=== PATIENT | male | born 1945 | race Hispanic/Latino ===

== ENCOUNTER 2019-11-04 11:42 | Inpatient (IN) | payer MEDICARE, OTHER ==
[~2019-11-04] VITALS: Ht 162.6 cm; Wt 81.0 kg
[2019-11-04 11:55] VITALS: PULSE 96; RESP 26
[2019-11-04] MEDS ORDERED: ALBUTEROL INHALER 90MCG/INH IH ONE (12:05)
[2019-11-04] MEDS ORDERED: AZITHROMYCIN 500MG+NS 250ML 250 ML IV ONE ×2 (12:32→14:07)
[2019-11-04] MEDS ORDERED: CEFTRIAXONE SODIUM 1 GM ONE ×2 (12:32→14:08)
[2019-11-04] MEDS ORDERED: FUROSEMIDE 10 MG/ML 4ML VIAL ONE (14:07)
[2019-11-04] MEDS ORDERED: ASPIRIN 325 MG TABLET ONE (14:07)
[2019-11-04] MEDS ORDERED: GUAIFENESIN-CODEINE 5 ML SYRUP PO PRN (15:30)
[2019-11-04] MEDS ORDERED: ACETAMINOPHEN 325 MG TAB PO PRN ×2 (15:30)
[2019-11-04] MEDS ORDERED: LACTULOSE 20 GM/30 ML UDCUP PO PRN (15:30)
[2019-11-04] MEDS: NITROGLYCERIN 1GM/1 INCH PACKET TD SCH ×2 (15:30→23:30)
[2019-11-04] MEDS ORDERED: HYDRALAZINE HCL 20 MG/ML VIAL IV PRN (15:30)
[2019-11-04] MEDS ORDERED: ONDANSETRON HCL 4 MG/2 ML VIAL IV PRN (15:30)
[2019-11-04] MEDS ORDERED: NITROGLYCERIN 1GM/1 INCH PACKET TD ONE (17:31)
[2019-11-04 20:00] VITALS: PULSE 117; RESP 26
[2019-11-04] MEDS: FUROSEMIDE 10 MG/ML 4ML VIAL IVP SCH (21:00)
[2019-11-04] MEDS: CEFTRIAXONE SODIUM 1 GM IV SCH (21:00)
[2019-11-04] MEDS: METOPROLOL TARTRATE 25 MG TAB PO SCH (21:00)
[2019-11-04] MEDS ORDERED: METOPROLOL TARTRATE 25 MG TAB ONE (21:34)
[2019-11-04] MEDS ORDERED: ENOXAPARIN SODIUM 40 MG/0.4 ML SYRINGE SQ ONE (21:50)
[2019-11-04 22:45] VITALS: PULSE 84; RESP 26
[2019-11-04 23:00] VITALS: BP 123/90; PULSE 110; RESP 23; TEMP 98.5
[2019-11-05] VITALS (11 sets, daily range): BP systolic 97–146; BP diastolic 47–76; PULSE 89–131; RESP 20–28; TEMP 98.5–99.8
[2019-11-05] MEDS: METOPROLOL TARTRATE 25 MG TAB PO SCH ×2 (08:25→21:28)
[2019-11-05] MEDS: NITROGLYCERIN 1GM/1 INCH PACKET TD SCH ×3 (08:26→23:10)
[2019-11-05] MEDS: CEFTRIAXONE SODIUM 1 GM IV SCH (08:26)
[2019-11-05] MEDS: FUROSEMIDE 10 MG/ML 4ML VIAL IVP SCH ×2 (08:26→21:29)
[2019-11-05] MEDS ORDERED: ASPIRIN 81MG TAB.CHEW PO SCH (09:00)
[2019-11-05] MEDS ORDERED: ENOXAPARIN SODIUM 40 MG/0.4 ML SYRINGE SQ SCH (09:00)
[2019-11-05] MEDS ORDERED: METOPROLOL TARTRATE 1 MG/ML 5ML VIAL IV PRN (11:00)
[2019-11-05] MEDS ORDERED: AZITHROMYCIN 500MG+NS 250ML 250 ML IV SCH (12:00)
--- NOTE | 2019-11-05 12:56 | NUR ---
DC PLAN PATIENT IN COVID UNIT UNDER PUI. CM WILL WAIT FOR RESULTS PRIOR TO CALLING PATIENT AND FAMILY IN ORDER TO HAVE A BETTER DC PLAN. Addendum: 11/05/19 at 1257 by MEILY HSU RN CM Amended: Links added.
[2019-11-05] MEDS ORDERED: CLOPIDOGREL BISULFATE 300 MG TAB PO SCH ×2 (13:45→20:30)
[2019-11-05] MEDS ORDERED: DEXTROSE 50%-WATER 50 ML DISP.SYRIN IV PRN (17:30)
[2019-11-05] MEDS ORDERED: GLUCAGON 1MG KIT 1 MG ML IM PRN (17:30)
[2019-11-05] MEDS ORDERED: PHARMACY COMMUNICATION MISC SCH (17:30)
[2019-11-05] MEDS ORDERED: MAGNESIUM 2GM PREMIX 50ML 50 ML IV PRN (17:30)
[2019-11-05] MEDS: INSULIN HUMULIN R 100 UNIT/ML 3ML SQ SCH (21:00)
[2019-11-05] MEDS: CLONAZEPAM 1 MG TABLET PO SCH (21:28)
[2019-11-05] MEDS: ENOXAPARIN SODIUM 80 MG/0.8 ML SQ SCH (21:29)
[2019-11-05] MEDS: METHYLPREDNISOLONE SOD SUCC 40MG/ML 1ML IVP SCH (21:29)
[2019-11-06] VITALS (10 sets, daily range): BP systolic 111–141; BP diastolic 65–94; PULSE 102–128; RESP 20–26; TEMP 96.8–100
[2019-11-06] MEDS: INSULIN HUMULIN R 100 UNIT/ML 3ML SQ SCH ×4 (05:56→20:54)
[2019-11-06] MEDS ORDERED: CLOPIDOGREL BISULFATE 75 MG TAB PO SCH (09:00)
[2019-11-06] MEDS: FUROSEMIDE 10 MG/ML 4ML VIAL IVP SCH ×2 (09:27→20:55)
[2019-11-06] MEDS: METHYLPREDNISOLONE SOD SUCC 40MG/ML 1ML IVP SCH ×2 (09:27→20:55)
[2019-11-06] MEDS: PANTOPRAZOLE SODIUM 40 MG TABLET.DR PO SCH (09:27)
[2019-11-06] MEDS: CLONAZEPAM 1 MG TABLET PO SCH ×2 (09:27→20:55)
[2019-11-06] MEDS: ASPIRIN 81MG TAB.CHEW PO SCH (09:27)
[2019-11-06] MEDS: CLOPIDOGREL BISULFATE 75 MG TAB PO SCH (09:27)
[2019-11-06] MEDS: METOPROLOL TARTRATE 25 MG TAB PO SCH ×2 (09:28→20:55)
[2019-11-06] MEDS: ATORVASTATIN CALCIUM 40 MG TABLET PO SCH (09:28)
[2019-11-06] MEDS: ENOXAPARIN SODIUM 80 MG/0.8 ML SQ SCH ×2 (09:30→20:56)
[2019-11-06] MEDS: NITROGLYCERIN 1GM/1 INCH PACKET TD SCH ×2 (09:36→16:26)
--- NOTE | 2019-11-06 14:18 | NUR ---
CORIE stephens call made to pt's room for assessment, pt requesting to call back at a later time.
--- NOTE | 2019-11-06 20:00 | NUR ---
VQ scan pending As per radiologist tech unable to take patient to CT at this time due to patient on high flow nasal canula. Will re-attempt in the morning.
[2019-11-06] MEDS: INSULIN GLARGINE 100 UNITS/ML 10 ML VIAL SQ SCH (20:53)
[2019-11-07] VITALS (10 sets, daily range): BP systolic 104–116; BP diastolic 60–72; PULSE 60–110; RESP 18–28; TEMP 97.6–98.2
[2019-11-07] MEDS: NITROGLYCERIN 1GM/1 INCH PACKET TD SCH ×4 (00:16→22:52)
[2019-11-07] MEDS: INSULIN HUMULIN R 100 UNIT/ML 3ML SQ SCH ×4 (06:19→21:35)
[2019-11-07] MEDS: FUROSEMIDE 10 MG/ML 4ML VIAL IVP SCH (08:57)
[2019-11-07] MEDS: METHYLPREDNISOLONE SOD SUCC 40MG/ML 1ML IVP SCH (08:57)
[2019-11-07] MEDS: ASPIRIN 81MG TAB.CHEW PO SCH (08:58)
[2019-11-07] MEDS: CLOPIDOGREL BISULFATE 75 MG TAB PO SCH (08:58)
[2019-11-07] MEDS: ATORVASTATIN CALCIUM 40 MG TABLET PO SCH (08:58)
[2019-11-07] MEDS: CLONAZEPAM 1 MG TABLET PO SCH ×2 (08:58→20:27)
[2019-11-07] MEDS: PANTOPRAZOLE SODIUM 40 MG TABLET.DR PO SCH (08:59)
[2019-11-07] MEDS: METOPROLOL TARTRATE 25 MG TAB PO SCH ×2 (08:59→20:28)
[2019-11-07] MEDS: ENOXAPARIN SODIUM 80 MG/0.8 ML SQ SCH ×2 (09:02→20:27)
[2019-11-07] MEDS: FUROSEMIDE 10 MG/ML 4ML VIAL IV SCH (20:28)
[2019-11-07] MEDS: INSULIN GLARGINE 100 UNITS/ML 10 ML VIAL SQ SCH (21:35)
[2019-11-08] VITALS (10 sets, daily range): BP systolic 91–128; BP diastolic 60–74; PULSE 67–109; RESP 18–22; TEMP 97.5–98.9
[2019-11-08] MEDS: INSULIN HUMULIN R 100 UNIT/ML 3ML SQ SCH ×4 (06:19→21:57)
[2019-11-08] MEDS: NITROGLYCERIN 1GM/1 INCH PACKET TD SCH ×3 (06:36→23:38)
--- NOTE | 2019-11-08 07:30 | NUR ---
ASSESSMENT ENCOUNTERED PT A&OX3, CALM COOPERATIVE AND DOES NOT APPEAR TO BE IN ANY DISTRESS. PT DENIES PAIN, SOB, NAUSEA BUT DOES C/O DYSPNEA ON EXERTION. PT IS AMBULATORY, GAIT SLOW BUT STEADY WITH ASSIST. O2 SATS ON ROOM AIR PRE AMBULATION 91%, DURING AMBULATION 89% AND PLACED BACK IN BED ON O2 90%, PLACED ON 2LNC WITH EXTENSION TUBING FOR AMBULATION TO BATHROOM, REMINDED TO UTILIZE CALL SYSTEM FOR ASSISTANCE AND RE-MONITORING FOR O2 SAT% WITH AMBULATION ON O2. PT UNDERSTOOD AND STATED HE WOULD CALL. CALL LIGHT WITHIN REACH.
[2019-11-08] MEDS: ATORVASTATIN CALCIUM 40 MG TABLET PO SCH (07:57)
[2019-11-08] MEDS: PANTOPRAZOLE SODIUM 40 MG TABLET.DR PO SCH (07:57)
[2019-11-08] MEDS: CLONAZEPAM 1 MG TABLET PO SCH ×2 (07:57→20:55)
[2019-11-08] MEDS: CLOPIDOGREL BISULFATE 75 MG TAB PO SCH (07:58)
[2019-11-08] MEDS: METOPROLOL TARTRATE 25 MG TAB PO SCH ×2 (07:58→20:55)
[2019-11-08] MEDS: ASPIRIN 81MG TAB.CHEW PO SCH (07:59)
[2019-11-08] MEDS: FUROSEMIDE 10 MG/ML 4ML VIAL IV SCH ×2 (07:59→20:54)
[2019-11-08] MEDS: ENOXAPARIN SODIUM 80 MG/0.8 ML SQ SCH ×2 (08:00→20:57)
--- NOTE | 2019-11-08 11:00 | NUR ---
AMBULATION WITH O2 WITH EXTENSION TUBING TOLERATED WELL, STILL C/O LOWER EXTREMITY WEAKNESS BUT DID STATE HE FELT BETTER, O2 SATS 93% WITH O2 AND 95% AFTER REST.
--- NOTE | 2019-11-08 13:04 | NUR ---
DC Plan Met with patient to discuss dc planning. Patient states independently performs ADLs and lives with who is independent as well. Denies any HH, DME, or provider services. Denies any falls in last 6 months. States feels safe returning home. Informed patient may require home oxygen. Patient does not have a preference, but wants to utilize a company close by [facility]. Patient signed JE and choice letter for any DME company. CM to continue to follow and assist as needed. CD Addendum: 11/08/19 at 1308 by TREY THOMAS CM Amended: Links added.
[2019-11-08] MEDS: INSULIN GLARGINE 100 UNITS/ML 10 ML VIAL SQ SCH (21:00)
[2019-11-09] VITALS (9 sets, daily range): BP systolic 108–124; BP diastolic 59–72; PULSE 81–115; RESP 17–20; TEMP 97.4–98.6
[2019-11-09] MEDS: INSULIN HUMULIN R 100 UNIT/ML 3ML SQ SCH ×4 (06:04→20:58)
[2019-11-09] MEDS: NITROGLYCERIN 1GM/1 INCH PACKET TD SCH ×3 (06:05→23:27)
[2019-11-09] MEDS: CLONAZEPAM 1 MG TABLET PO SCH ×2 (09:01→20:55)
[2019-11-09] MEDS: CLOPIDOGREL BISULFATE 75 MG TAB PO SCH (09:01)
[2019-11-09] MEDS: METOPROLOL TARTRATE 25 MG TAB PO SCH ×2 (09:01→20:56)
[2019-11-09] MEDS: FUROSEMIDE 10 MG/ML 4ML VIAL IV SCH ×2 (09:01→20:55)
[2019-11-09] MEDS: ATORVASTATIN CALCIUM 40 MG TABLET PO SCH (09:02)
[2019-11-09] MEDS: ASPIRIN 81MG TAB.CHEW PO SCH (09:02)
[2019-11-09] MEDS: ENOXAPARIN SODIUM 80 MG/0.8 ML SQ SCH ×2 (09:03→20:56)
[2019-11-09] MEDS: PANTOPRAZOLE SODIUM 40 MG TABLET.DR PO SCH (09:05)
--- NOTE | 2019-11-09 17:45 | NUR ---
CM NOTE/IA UNSUCCESSFUL PATIENT NOT IN ROOM AT 1745, IN VQ SCAN. CM TO FOLLOW UP FOR IA Addendum: 11/09/19 at 1824 by SUNITA HUMPHREY RN CM Amended: Links added.
[2019-11-09] MEDS: INSULIN GLARGINE 100 UNITS/ML 10 ML VIAL SQ SCH (20:52)
--- NOTE | 2019-11-09 20:55 | NUR ---
MEDS SHIFT ASSESSMENT DONE, PLEASE REFER TO CHART. DUE MEDS ADMINISTERED, TOLERATED WELL. KEPT RESTED AND COMFORTABLE . CALL LIGHT WITHIN REACH. WILL MONITOR PT. Addendum: 11/09/19 at 2301 by ETTA CHIN RN RN Amended: Links added.
[2019-11-10] VITALS (9 sets, daily range): BP systolic 95–151; BP diastolic 60–88; PULSE 88–107; RESP 18–20; TEMP 97.5–98.1
--- NOTE | 2019-11-10 02:05 | NUR ---
ROUNDS PT RESTING WELL, FAIRLY ASLEEP, WITH RESPIRATIONS EVEN AND UNLABORED. NO DISTRESS NOTED. KEPT RESTED AND COMFORTABLE. CALL LIGHT WITHIN REACH. WILL MONITOR PT.
--- NOTE | 2019-11-10 05:40 | NUR ---
ROUNDS PT RESTING WELL, DENIES ANY PAINS AT THIS TIME. KEPT RESTED AND COMFORTABLE. FOR MORE CARE.
[2019-11-10] MEDS: INSULIN HUMULIN R 100 UNIT/ML 3ML SQ SCH ×4 (06:11→21:43)
[2019-11-10] MEDS: NITROGLYCERIN 1GM/1 INCH PACKET TD SCH ×3 (06:27→23:57)
[2019-11-10] MEDS: CLONAZEPAM 1 MG TABLET PO SCH ×2 (10:26→21:29)
[2019-11-10] MEDS: ASPIRIN 81MG TAB.CHEW PO SCH (10:26)
[2019-11-10] MEDS: METOPROLOL TARTRATE 25 MG TAB PO SCH ×2 (10:27→21:29)
[2019-11-10] MEDS: ATORVASTATIN CALCIUM 40 MG TABLET PO SCH (10:27)
[2019-11-10] MEDS: CLOPIDOGREL BISULFATE 75 MG TAB PO SCH (10:27)
[2019-11-10] MEDS: PANTOPRAZOLE SODIUM 40 MG TABLET.DR PO SCH (10:27)
[2019-11-10] MEDS: ENOXAPARIN SODIUM 80 MG/0.8 ML SQ SCH ×2 (10:28→21:31)
[2019-11-10] MEDS: FUROSEMIDE 10 MG/ML 4ML VIAL IV SCH ×2 (10:28→21:31)
--- NOTE | 2019-11-10 10:53 | NUR ---
CM NOTE/IA MEET WITH PATIENT IN ROOM. PER PATIENT, LIVES WITH SPOUSE AND ADULT SON, INDEPENDENT WITH ADLS, NO DME IN USE, RETIRED, DRIVES, DCP HOME ONCE DISCHARGED FROM HOSPITAL. Addendum: 11/11/19 at 1054 by SUNITA HUMPHREY RN CM Amended: Links added.
--- NOTE | 2019-11-10 16:36 | NUR ---
CM NOTE/[facility] NEW ORDER FOR HOME O2, HOME EVAL TEST DONE AND QUALIFIED AT 87% ON ROOM AIR AT REST. JE COMPLETED PRIOR TO ANY DME IN NETWORK FOR OXYGEN. CLINICAL PACKET FAXED TO [facility] PATIENT, CONFIRMED RECEIVED BY FAX RECEIPT. PENDING REVIEW AND APPROVAL, PRIMARY NURSE, IMANI JONES, MADE AWARE. CM TO FOLLOW UP ACCORDINGLY.
[2019-11-10] MEDS: INSULIN GLARGINE 100 UNITS/ML 10 ML VIAL SQ SCH (21:42)
[2019-11-11 04:00] VITALS: BP 112/59; PULSE 101; RESP 18; TEMP 98.3
[2019-11-11] MEDS: INSULIN HUMULIN R 100 UNIT/ML 3ML SQ SCH ×3 (05:58→16:19)
[2019-11-11] MEDS: NITROGLYCERIN 1GM/1 INCH PACKET TD SCH ×2 (06:34→16:06)
[2019-11-11 07:00] VITALS: PULSE 106; RESP 16
[2019-11-11 08:30] VITALS: BP 118/69; PULSE 111; RESP 18; TEMP 97.7
--- NOTE | 2019-11-11 08:54 | NUR ---
CM NOTE/OXYGEN PER [facility] AT [facility] PATIENT, FAMILY OF PATIENT WILL BE CALLED TO MAKE ARRANGEMENTS FOR HOME DELIVERY. MANUFACTURING TEST TECHNICIAN WILL DROP OFF PORTABLE AND CONCENTRATOR AT HOME THEN FAMILY MEMBER CAN PRISON PSYCHIATRIST PATIENT FROM HOSPITAL WITH PORTABLE OXYGEN. PRIMARY NURSE MADE AWARE. PATIENT MADE AWARE.
[2019-11-11] MEDS: ENOXAPARIN SODIUM 80 MG/0.8 ML SQ SCH (09:00)
[2019-11-11] MEDS: CLONAZEPAM 1 MG TABLET PO SCH (09:00)
[2019-11-11] MEDS: ATORVASTATIN CALCIUM 40 MG TABLET PO SCH (09:33)
[2019-11-11] MEDS: CLOPIDOGREL BISULFATE 75 MG TAB PO SCH (09:34)
[2019-11-11] MEDS: METOPROLOL TARTRATE 25 MG TAB PO SCH (09:34)
[2019-11-11] MEDS: PANTOPRAZOLE SODIUM 40 MG TABLET.DR PO SCH (09:35)
[2019-11-11] MEDS: ASPIRIN 81MG TAB.CHEW PO SCH (09:37)
[2019-11-11] MEDS: FUROSEMIDE 10 MG/ML 4ML VIAL IV SCH (09:37)
[2019-11-11 12:00] VITALS: BP 110/63; PULSE 92; RESP 18; TEMP 98.6
--- NOTE | 2019-11-11 14:09 | NUR ---
RDSCREEN - LOS X 7 Pt admitted with Acute Heart Failure, Non-St Segment elevation. Pt tolerating Heart Healthy diet order with no report of GI distress and Pt reports 100% PO intake at lunch. Pt Obesity class I. Elevated BG (424), BNP 466. Recommend 30gm CCD Recommend 1500mL Fluid Restriction RD to continue to monitor. Please notify as additional nutrition concerns arise. Thank you. Addendum: 11/11/19 at [address] Amended: Links added.
--- NOTE | 2019-11-11 14:21 | NUR ---
CONSULT FOR HYPONATREMIA CALLED IN TO DR. Ginger LAZO.
--- NOTE | 2019-11-11 16:38 | NUR ---
CALLED INT`O ROOM AND PT. STATES HE WANTS TO LEAVE NOW DR. Miles HERE AT RT. OR WRONG TIME AND PT.TELLS HIM HE DOESN'T NEED TO SEE HIM , HE IS LEAVING AND GOING TO SEE HIS PRIMARY CARE DR. RALPH NOTIFIED AND ALSO CALLED PILY TALBERT PLATE FORMER TO NOTIFY HER OF AMA. SALINE LOCK REMOVED AND HEART MONITOR REMOVED. PT. CALLED TO COME AND GET HIM.
--- NOTE | 2019-11-11 17:00 | NUR ---
AMA FORMED, PATIENT LEFT, ALL PERSONAL BELONGINGS TIN ROOM TAKEN, WITH HIM.SPOUSE WAITING ON HIM IN ER ENTRANCE.
[2019-11-11 18:43] VITALS: PULSE 62; RESP 16
== END 2019-11-11 17:30 | disposition left against medical advice (07) | DRG 280 ==
LOC: EDH 11:42 → EDHIP 15:27 → 2DH 22:25 → 2AH 11-05 17:03 → 4CH 11-08 15:23
PROVIDERS: ADMIT Internal Medicine; ATTEND Internal Medicine
DX: I21.4 Non-ST elevation (NSTEMI) myocardial infarction (principal); J96.01 Acute respiratory failure with hypoxia; I50.23 Acute on chronic systolic (congestive) heart failure; J18.9 Pneumonia, unspecified organism; E87.1 Hypo-osmolality and hyponatremia; J98.11 Atelectasis; N17.9 Acute kidney failure, unspecified; I13.0 Hypertensive heart and chronic kidney disease with heart failure and stage 1 through stage 4 chronic kidney disease, or unspecified chronic kidney disease; I42.9 Cardiomyopathy, unspecified; I11.0 Hypertensive heart disease with heart failure; E87.8 Other disorders of electrolyte and fluid balance, not elsewhere classified; I50.9 Heart failure, unspecified; E11.22 Type 2 diabetes mellitus with diabetic chronic kidney disease; E11.65 Type 2 diabetes mellitus with hyperglycemia; Z20.828 Contact with and (suspected) exposure to other viral communicable diseases; E78.00 Pure hypercholesterolemia, unspecified; F41.1 Generalized anxiety disorder; N18.9 Chronic kidney disease, unspecified; E78.5 Hyperlipidemia, unspecified; Z79.82 Long term (current) use of aspirin; Z79.899 Other long term (current) drug therapy